=== PATIENT | female | born 2005 | race Caucasian/White ===

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

== ENCOUNTER 2023-01-13 17:50 | Emergency (ER) | payer OTHER, SELFPAY ==
--- NOTE | ~2023-01-13 | XR_ITS ---
EXAMINATION: XR chest 2V Exam Date/Time: 01/13/2023 18:55 CDT HISTORY: chest pain MID STERNAL CHEST PAIN X 1 DAY Comparison: None. RESULT: Lines, tubes, and devices: None. Lungs and pleura: Clear. Cardiomediastinal silhouette: Stable. Other: No acute osseous or upper abdominal finding. IMPRESSION: No acute cardiopulmonary process. Reviewed, dictated and finalized at location K.
--- NOTE | 2023-01-13 17:51 | ECG_ITS ---
Measurements Intervals [place] Rate: 101 P: 52 CT: 128 QRS: 64 QRSD: 85 T: 35 QT: 323 QTc: 419 Interpretive Statements SINUS TACHYCARDIA INCOMPLETE RIGHT BUNDLE BRANCH BLOCK NONSPECIFIC STTW ABNORMALITY NO PREVIOUS ECG AVAILABLE FOR COMPARISON Electronically Signed On 01-14-2023 14:49:26 CDT by Vishal Gamez M.D.
[2023-01-13 17:57] VITALS: BP 144/89; PULSE 84; RESP 16; TEMP 36.6; O2SAT 100
[2023-01-13 18:30] LABS: Basophils Percent Auto 0.4 % (0.2-1.2); Eosinophils Absolute Auto 0.2 K/mm3 (0-0.3); Eosinophils Percent Auto 1.9 % (0-4.4); Hematocrit 42.5 % (37.0-47.0); Hemoglobin 14.6 g/dL (12.0-15.0); Immature Granulocyte Absolute 0.02 K/mm3 (0.00-0.031); Immature Granulocyte Percent A 0.2 % (0-0.5); Lymphocytes Absolute Auto 3.24 K/mm3 (0.9-3.2); Lymphocytes Percent Auto 38.8 % (18.3-44.2); Mean Corpuscular HGB Conc 34.4 g/dl (32-36); Mean Corpuscular Hemoglobin 30.5 pg (26-34); Mean Corpuscular Volume 88.9 fl (80-100); Mean Platelet Volume 9.5 fl (7.4-10.4); Monocytes Absolute Auto 0.7 K/mm3 (0.1-0.6); Monocytes Percent Auto 7.8 % (2.6-8.5); Neutrophils Absolute Auto 4.2 K/mm3 (1.3-6.7); Neutrophils Percent Auto 50.9 % (45.5-73.1); Platelet Count Result 354 k/mm3 (150-375); Red Blood Count 4.78 M/mm3 (4.2-5.4); Red Cell Distribution Width 12.5 % (11.5-14.5); White Blood Count 8.3 K/mm3 (4.5-10.0)
[2023-01-13 18:41] LABS: Alanine Aminotransferase 34 U/L (6-35); Albumin Level 4.9 g/dL (3.7-5.6); Alkaline Phosphatase 90 U/L (45-116); Anion Gap 8 mmol/L (8-16); Aspartate Amino Transferase 36 U/L (14-36); Bilirubin,Total 0.3 mg/dL (0.2-1.3); Blood Urea Nitrogen 9 mg/dL (8-21); Calcium 9.3 mg/dL (8.9-10.7); Carbon Dioxide 29 mmol/L (22-30); Chloride 103 mmol/L (98-107); Estimated CRCL calculation 96 ml/min; Estimated Glomerular Filt Rate > 60; Glucose 93 mg/dL (65-110); Lipase 105 U/L (23-300); Potassium 3.8 mmol/L (3.4-5.0); Sodium 140 mmol/L (134-143)
[2023-01-13 18:43] LABS: Prothrombin Time 13.2 Seconds (11.1-14.7)
[2023-01-13 18:44] LABS: Partial Thromboplastin Time 28.6 SECONDS (22.3-36.8)
[2023-01-13 18:52] LABS: Troponin I < 0.012 ng/mL (0.000-0.034)
--- NOTE | 2023-01-13 20:24 | ED.CHESTPAIN ---
HPI - Chest Pain General Chief Complaint: Chest Pain Stated Complaint: chest pain Time Seen by Provider: 01/13/23 19:56 History of Present Illness HPI narrative: 17-year-old female reports for evaluation of right anterior chest pain that started approximately 2 and half hours prior to arrival. Patient states she was laying in her bed when she experienced a sharp pain to her right anterior chest that is worse with inspiration, leaning forward and movement. She denies alleviating factors. Patient does note that she had port steak for dinner, however the pain started before the onset of eating pork steak. She denies history of VTE, is not on control, no recent surgeries or hospitalizations. Denies injury or trauma, rash or overlying skin changes, nausea, vomiting, abdominal pain, indigestion, dysphagia or odynophagia, cough or congestion. She has not taken anything for pain. The pain does not radiate anywhere. She does endorse feeling anxious about the chest pain, however the anxiety did not start till after the chest pain started and she does not feel the chest pain is due to anxiety. Related Data Allergies Allergy/AdvReac Type Severity Reaction Status Date / Time No Known Allergies Allergy Unverified 06/12/21 23:52 Review of Systems Review of Systems: CONSTITUTIONAL: Denies fever, chills EYES: Denies visual changes, redness, or discharge. ENT: Denies rhinorrhea, congestion, sore throat, or otalgia. CARDIOVASCULAR: See HPI RESPIRATORY: Denies cough or dyspnea. GASTROINTESTINAL: Denies abdominal pain, nausea, vomiting, or diarrhea. GENITOURINARY: Denies dysuria or hematuria. SKIN: Denies rash or itching. MUSCULOSKELETAL: Denies back pain, joint pain, or myalgia. NEUROLOGIC: Denies headache, numbness, dizziness, or weakness. PSYCHIATRIC: Denies anxiety or depression. Exam Narrative: GENERAL: Well-appearing, in no acute distress. HEAD: Normocephalic EYES: PERRLA ENT: Nares clear. Mucous membranes moist. Oropharynx without tonsillar hypertrophy exudate or other lesions. NECK: Supple. CHEST: No respiratory distress. Clear to auscultation, no adventitious breath sounds. HEART: Regular rate and rhythm. No murmur heard. Normal peripheral pulses. No tenderness to chest wall. No overlying skin changes. ABDOMEN: Soft, nontender, normal active bowel sounds. EXTREMITIES: Normal range of motion. No edema. Negative Homans. SKIN: Warm, dry, no rash. NEURO: No focal deficits. Alert and oriented x3. PSYCH: Normal mood and affect. Course Vital Signs Vital signs: Vital Signs Temperature 97.9 F 01/13/23 17:57 Pulse Rate 84 01/13/23 17:57 Respiratory Rate 16 01/13/23 17:57 Blood Pressure 144/89 H 01/13/23 17:57 Pulse Oximetry 100 01/13/23 17:57 Oxygen Delivery Room Air 01/13/23 17:57 Temperature 97.6 F 01/13/23 22:21 Pulse Rate 84 01/13/23 22:21 Respiratory Rate 15 01/13/23 22:21 Blood Pressure 114/75 01/13/23 22:21 Pulse Oximetry 100 01/13/23 22:21 Oxygen Delivery Room Air 01/13/23 17:57 MDM - Chest Pain MDM Narrative Medical decision making narrative: 17-year-old female reports for evaluation of right anterior pleuritic chest pain that started approximately 2 and half hours prior to arrival while laying in bed. Vital stable, she is afebrile. Exam unremarkable. EKG reveals sinus tachycardia with a rate of 101, no ST elevations or depressions. CBC and chemistries are unremarkable. D-dimer negative. Troponin 1 and 2 negative. Chest x-ray without acute cardiopulmonary process. test negative. Lipase normal. She received Toradol with improvement in pain. Labs and imaging discussed with the patient. Heart score is 2. It is likely her pain is secondary to pleurisy. Encouraged her to take Tylenol and ibuprofen as needed for pain and to follow-up with her PCP within the following week for reevaluation. Strict ED return precautions discussed. Patient agrees wi
[2023-01-13] MEDS: KETOROLAC 30 MG/ML VIAL (*BKC) IV PUSH (20:47)
[2023-01-13 21:01] LABS: NT Pro B Type Natriuretic Pept < 20 pg/mL (19.9-100)
[2023-01-13 21:20] LABS: Troponin I < 0.012 ng/mL (0.000-0.034)
[2023-01-13 21:52] LABS: D Dimer < 0.27 ug/mL (<0.48)
[2023-01-13 22:21] VITALS: BP 114/75; PULSE 84; RESP 15; TEMP 36.4; O2SAT 100
== END 2023-01-13 22:22 | disposition home or self-care (01) ==
PROVIDERS: Emergency Medicine; Emergency Provider Physician Assistant; PCP Pediatrics Adolescent Medicine
DX: R07.89 Other chest pain (principal); R00.0 Tachycardia, unspecified; I45.10 Unspecified right bundle-branch block; R94.31 Abnormal electrocardiogram [ECG] [EKG]
CPT/HCPCS: 36415; 71046; 80053; 81025; 83690; 83880; 84484; 85025; 85380; 85610; 85730; 93005; 96374; 99284; J1885

== ENCOUNTER 2024-05-08 10:40 | Emergency (ER) | payer OTHER, SELFPAY ==
--- NOTE | ~2024-05-08 | XR_ITS ---
EXAMINATION: XR chest 2V DATE: 05/08/2024 12:22 INDICATION: Productive cough TECHNIQUE: PA and lateral views of the chest were obtained. COMPARISON: Chest radiograph dated 01/13/2023 FINDINGS: The lungs remain clear with no focal airspace opacities, pulmonary edema, pleural effusion or pneumot horax. The cardiomediastinal silhouette is normal. Visualized bones and soft tissues are unremarkable . IMPRESSION: 1. No acute cardiopulmonary disease. Reviewed, dictated and finalized at location A.
[2024-05-08 10:43] VITALS: BP 148/90; PULSE 113; RESP 16; TEMP 36.6; O2SAT 99
[2024-05-08 11:54] LABS: Strep Group A RT-PCR NOT DETECTED (Negative)
[2024-05-08 12:06] LABS: Influenza A QL RT-PCR Negative (Negative); Influenza B QL RT-PCR Negative (Negative); RSV RNA, RT-PCR Negative (Negative); SARS-CoV-2 RNA PCR Negative (Negative)
--- NOTE | 2024-05-08 12:06 | ED.GENADULT ---
HPI - General Adult General Chief complaint: Unspecified Stated complaint: sore throat Time Seen by Provider: 05/08/24 11:29 History of Present Illness HPI narrative: 19-year-old female no past medical history presents to the emergency department for sore throat and left ear pressure for 4 days. She denies difficulty swallowing, pain with swallowing, fever, nausea or vomiting. She is also reporting intermittent productive cough. She has been taking [id number] Mucinex with improvement in symptoms. Related Data Allergies Allergy/AdvReac Type Severity Reaction Status Date / Time No Known Allergies Allergy Verified 05/08/24 10:45 Review of Systems Review of Systems: All systems reviewed & are unremarkable except as noted in HPI and below Exam Narrative: GENERAL: Well-appearing, well-nourished, and in no acute distress. HEAD: Normocephalic, atraumatic. EYES: PERRLA and EOMI. ENT: Nares clear, no rhinorrhea or epistaxis. Mucous membranes moist. Bilateral TMs are ndiaye nonbulging with normal canals. Posterior pharynx with mild erythema and exudates to bilateral tonsils. No unilateral tonsillar hypertrophy, uvula is midline. No trismus. Patient tolerates secretions and speaking in full sentences. NECK: Supple. CHEST: Clear to auscultation. No respiratory distress. HEART: Regular rate and rhythm. No murmur heard. Normal peripheral pulses. EXTREMITIES: Normal range of motion. No edema. SKIN: Warm, dry, no rash. NEURO: No focal deficits. Alert and oriented x3 Course Vital Signs Vital signs: Vital Signs Temperature 97.8 F 05/08/24 10:43 Pulse Rate 113 H 05/08/24 10:43 Respiratory Rate 16 05/08/24 10:43 Blood Pressure 148/90 H 05/08/24 10:43 Pulse Oximetry 99 05/08/24 10:43 Temperature 97.8 F 05/08/24 10:43 Pulse Rate 113 H 05/08/24 10:43 Respiratory Rate 16 05/08/24 10:43 Blood Pressure 148/90 H 05/08/24 10:43 Pulse Oximetry 99 05/08/24 10:43 Medical Decision Making [facility] Narrative Medical decision making narrative: 19-year-old female presents emergency department for sore throat, left ear pressure and productive cough for the past 4 days. Triage vitals with tachycardia 113. She is afebrile and nontoxic appearing. Exam is significant for the above. Notably bilateral TMs are ndiaye nonbulging normal canals. Posterior pharynx with erythema and bilateral tonsillar exudates. There is no tonsillar hypertrophy, uvular deviation, trismus. She is speaking full sentences tolerating secretions. COVID, flu, RSV, strep and mono are negative. Chest x-ray is unremarkable. Patient updated on workup. Will treat as viral pharyngitis with steroids. Discussed follow-up with PCP and strict ED return precautions. She is agreeable to plan verbalized understanding. Discharged in stable condition. Vital Signs Vital Signs: Vital Signs Temperature 97.8 F 05/08/24 10:43 Pulse Rate 113 H 05/08/24 10:43 Respiratory Rate 16 05/08/24 10:43 Blood Pressure 148/90 H 05/08/24 10:43 Pulse Oximetry 99 05/08/24 10:43 Temperature 97.8 F 05/08/24 10:43 Pulse Rate 113 H 05/08/24 10:43 Respiratory Rate 16 05/08/24 10:43 Blood Pressure 148/90 H 05/08/24 10:43 Pulse Oximetry 99 05/08/24 10:43 Lab Data Labs: Lab Results 05/08/24 05/08/24 Range/Units 11:26 12:05 Monoscreen Negative (Negative) Influenza A (RT-PCR) Negative (Negative) Influenza B (RT-PCR) Negative (Negative) RSV (RT-PCR) Negative (Negative) SARS-CoV-2 RNA (RT-PCR) Negative (Negative) Group A Strep (PCR) Not detected (Negative) Discharge Plan Discharge Clinical Impression: Acute viral pharyngitis Patient Disposition: Home, Self-Care Condition: Stable Instructions: Antibiotic Form, Pharyngitis (ED) Additional Instructions: you were evaluated in the emergency department for left ear pain, cough and sore throat. COVID, flu, RSV, mono an
[2024-05-08 13:08] LABS: Monoscreen Negative (Negative); Negative Monotest Control Negative (Negative); Positive Monotest Control Positive (Positive)
[2024-05-08 14:15] VITALS: BP 132/74; PULSE 90; RESP 19; O2SAT 99
== END 2024-05-08 14:15 | disposition home or self-care (01) ==
PROVIDERS: Preventive Medicine Aerospace Medicine; Emergency Provider Physician Assistant; PCP Family Medicine
DX: J02.8 Acute pharyngitis due to other specified organisms (principal); Z20.822 Contact with and (suspected) exposure to COVID-19
CPT/HCPCS: 36415; 71046; 86308; 87637; 87651; 99283

== ENCOUNTER 2024-05-17 21:39 | Emergency (ER) | payer OTHER, SELFPAY ==
--- NOTE | ~2024-05-17 | XR_ITS ---
EXAMINATION: XR chest 2V DATE: 05/17/2024 22:38 INDICATION: Chest tightness. Shortness of breath. TECHNIQUE: Frontal and lateral views of the chest were obtained. COMPARISON: Chest 2 views 05/08/2024 FINDINGS: There is no pneumonia, pleural effusion, or pneumothorax. The heart size is normal. IMPRESSION: 1. No acute cardiopulmonary disease. Reviewed, dictated and finalized at location A.
[2024-05-17 21:40] VITALS: BP 138/92; PULSE 149; RESP 18; TEMP 36.8; O2SAT 99
--- NOTE | 2024-05-17 21:50 | ECG_ITS ---
Test Date: 2024-05-17 21:48:53 Measurements Intervals [place] Rate: 143 P: 0 HI: 0 QRS: 64 QRSD: 93 T: 55 QT: 327 QTc: 506 Interpretive Statements SINUS TACHYCARDIA INCOMPLETE RIGHT BUNDLE BRANCH BLOCK NONSPECIFIC STTW ABNORMALITY No previous ECG available for comparison Electronically Signed On 05-18-2024 12:20:45 CDT by Vishal Gamez M.D.
[2024-05-17 21:51] VITALS: O2SAT 100
[2024-05-17] MEDS: SODIUM CHLORIDE 0.9% IV 1,000 ML 999 ML IV CONT ×2 (22:01→23:47)
[2024-05-17 22:53] VITALS: BP 146/91; PULSE 150; RESP 15; O2SAT 100
[2024-05-17] MEDS: LORazepam (*CRX) 0.5 MG TABLET PO (22:59)
[2024-05-17] MEDS: ACETAMINOPHEN 500 MG TABLET 1000 MG PO (22:59)
[2024-05-17 23:06] LABS: Alanine Aminotransferase 24 U/L (6-35); Albumin Level 4.7 g/dL (3.5-5.1); Alkaline Phosphatase 78 U/L (38-126); Anion Gap 12 mmol/L (4-12); Aspartate Amino Transferase 26 U/L (14-36); Bilirubin,Total 0.3 mg/dL (0.2-1.3); Blood Urea Nitrogen 12 mg/dL (7-17); Calcium 9.6 mg/dL (8.4-10.2); Carbon Dioxide 25 mmol/L (22-30); Chloride 100 mmol/L (98-107); Estimated CRCL calculation 104 ml/min; Estimated Glomerular Filt Rate > 60; Glucose 147 mg/dL (65-110); Potassium 3.1 mmol/L (3.4-5.0); Sodium 137 mmol/L (137-145)
[2024-05-17 23:07] LABS: Prothrombin Time 13.7 Seconds (11.1-14.7)
[2024-05-17 23:08] LABS: Partial Thromboplastin Time 26.2 Seconds (22.3-36.8)
[2024-05-17 23:10] LABS: Basophils Percent Auto 0.3 % (0.2-1.2); Eosinophils Absolute Auto 0.1 K/mm3 (0-0.3); Eosinophils Percent Auto 0.5 % (0-4.4); Hematocrit 40.2 % (37.0-47.0); Hemoglobin 13.8 g/dL (12.0-15.0); Immature Granulocyte Absolute 0.07 K/mm3 (0.00-0.031); Immature Granulocyte Percent A 0.5 % (0-0.5); Lymphocytes Absolute Auto 2.32 K/mm3 (0.9-3.2); Lymphocytes Percent Auto 15.5 % (18.3-44.2); Mean Corpuscular HGB Conc 34.3 g/dl (32-36); Mean Corpuscular Hemoglobin 30.8 pg (26-34); Mean Corpuscular Volume 89.7 fl (80-100); Mean Platelet Volume 9.8 fl (7.4-10.4); Monocytes Absolute Auto 0.9 K/mm3 (0.1-0.6); Neutrophils Absolute Auto 11.5 K/mm3 (1.3-6.7); Neutrophils Percent Auto 77.2 % (45.5-73.1); Platelet Count Result 325 k/mm3 (150-375); Red Blood Count 4.48 M/mm3 (4.2-5.4); Red Cell Distribution Width 11.8 % (11.5-14.5); White Blood Count 14.9 K/mm3 (4.5-10.0)
[2024-05-17 23:15] LABS: D Dimer < 0.27 ug/mL (<0.48)
[2024-05-17 23:18] LABS: Troponin I < 0.012 ng/mL (0.000-0.034)
[2024-05-17 23:25] VITALS: BP 146/92; PULSE 141; RESP 16; O2SAT 98
--- NOTE | 2024-05-17 23:42 | ED.GENADULT ---
HPI - General Adult General Chief complaint: Allergic Reaction <MADYSON Simpson Last Filed: 05/18/24 03:48> Stated complaint: CHEST TIGHTNESS S/P RECEIVING COVID VAX TODAY <MADYSON Simpson Last Filed: 05/18/24 03:48> Time Seen by Provider: 05/17/24 21:50 <MADYSON Simpson Last Filed: 05/18/24 03:48> Source: patient <MADYSON Simpson Last Filed: 05/18/24 03:48> Mode of arrival: EMS <MADYSON Simpson Last Filed: 05/18/24 03:48> Limitations: no limitations <MADYSON Simpson Last Filed: 05/18/24 03:48> History of Present Illness HPI narrative: Patient is a 19-year-old female who presents the ED via EMS with report of chest tightness. Patient reports she received a Pfizer COVID-19 booster vaccine as well as her flu vaccine today. She then began having chest tightness and feeling mildly short of breath around 8:00 p.m. EMS was notified. Patient also reports having body aches, fatigue, palpitations. She was noted to be tachycardic per EMS in the 150s. Denies recent cough or cold symptoms, fevers. <MADYSON Simpson Last Filed: 05/18/24 03:48> Related Data Allergies/adverse reactions: Allergies Allergy/AdvReac Type Severity Reaction Status Date / Time No Known Allergies Allergy Verified 05/08/24 10:45 <MADYSON Simpson Last Filed: 05/18/24 03:48> Review of Systems Review of Systems: All systems reviewed & are unremarkable except as noted in HPI. <MADYSON Simpson Last Filed: 05/18/24 03:48> All systems reviewed & are unremarkable except as noted in HPI and below <MADYSON Simpson Last Filed: 05/18/24 03:48> Exam Narrative: GENERAL: Mildly anxious appearing, well-nourished, non-toxic, in no acute distress. HEAD: Normocephalic, atraumatic. RESPIRATORY: Airway patent, respirations nonlabored. Clear to auscultation bilaterally, no rales, rhonchi, wheezing. No focal lung sounds. CARDIOVASCULAR: Tachycardic with regular rhythm without murmurs, rubs, or gallops. MUSCULOSKELETAL: Moves all extremities. No gross deformities. Tenderness to palpation throughout midsternal chest wall, reproducing pain. No peripheral edema or calf tenderness. SKIN: Warm, dry, normal color. NEURO: A&O X3. Speech clear. Cranial nerves II-XII grossly intact. Steady gait. No ataxic movements. PSYCHIATRIC: Appropriate mood and affect. Normal interaction. <Candi Yang PA-C - Last Filed: 05/18/24 03:48> Course PRODUCT SPECIALIST/PA Physician Supervision Patient's HPI, Exam, and MDM were reviewed and I agreed with the workup and disposition done in the emergency department by the MLP. I was available for consultation, but was not directly involved with patient's care nor did I evaluate the patient. <Humberto Duncan MD - Last Filed: 05/18/24 07:19> Vital Signs Vital signs: Vital Signs Temperature 36.8 C 05/17/24 21:40 Pulse Rate 149 H 05/17/24 21:40 Respiratory Rate 18 05/17/24 21:40 Blood Pressure 138/92 H 05/17/24 21:40 Pulse Oximetry 99 05/17/24 21:40 Oxygen Delivery Room Air 05/17/24 21:40 Temperature 36.8 C 05/17/24 21:40 Pulse Rate 126 H 05/18/24 02:34 Respiratory Rate 16 05/18/24 02:34 Blood Pressure 124/84 05/18/24 02:34 Pulse Oximetry 100 05/18/24 02:34 Oxygen Delivery Room Air 05/17/24 21:51 <Candi Yang PA-C - Last Filed: 05/18/24 03:48> Vital Signs Temperature 36.8 C 05/17/24 21:40 Pulse Rate 149 H 05/17/24 21:40 Respiratory Rate 18 05/17/24 21:40 Blood Pressure 138/92 H 05/17/24 21:40 Pulse Oximetry 99 05/17/24 21:40 Oxygen Delivery Room Air 05/17/24 21:40 Temperature 36.8 C 05/17/24 21:40 Pulse Rate 126 H 05/18/24 02:34 Respiratory Rate 16 05/18/24 02:34 Blood Pressure 124/84 05/18/24 02:34 Pulse Oximetry 100 05/18/24 02:34 Oxygen Delivery Room A
[2024-05-17] MEDS: POTASSIUM CHLORIDE 20 MEQ ER TABLET 40 MEQ PO (23:47)
[2024-05-17 23:58] LABS: Add Urine Microscopic? NO; Appearance Urine Clear (Clear); Bilirubin Urine Negative (Negative); Blood Urine Negative (Negative); Color Urine Yellow (Yellow); Glucose Urine UA Negative (Negative); Ketones Urine Negative (Negative); Leukocyte Esterase Ur Negative LEU/UL (Negative); Nitrate Urine Negative (Negative); Protein Urine Negative (Negative); Specific Grav Ur 1.009 (1.001-1.035); Urobilinogen Urine 0.2 mg/dL (<2.0); pH Urine 6.5 (5.0-9.0)
[2024-05-18 00:19] LABS: Amphetamine Screen Urine Negative (Negative); Barbiturate Screen Urine Negative (Negative); Benzodiazepines Screen Urine Negative (Negative); Cannabinoid Screen Urine Negative (Negative); Cocaine Screen Urine Negative (Negative); Methadone Screen Urine Negative (Negative); Opiate Screen Urine Negative (Negative); Phencyclidine Screen Urine Negative (Negative)
[2024-05-18 00:25] VITALS: BP 120/75; PULSE 123; O2SAT 99
[2024-05-18 01:30] VITALS: BP 126/82; PULSE 126; RESP 18; O2SAT 100
--- NOTE | 2024-05-18 01:51 | ECG_ITS ---
Test Date: 2024-05-18 01:51:24 Measurements Intervals [place] Rate: 136 P: 60 VA: 104 QRS: 57 QRSD: 89 T: 28 QT: 330 QTc: 498 Interpretive Statements SINUS TACHYCARDIA INOCMPLETE RIGHT BUNDLE BRANCH BLOCK NONSPECIFIC STTW ABNORMALITY Compared to ECG 05/17/2024 21:48:53 NO SIGNIFICANT CHANGES Electronically Signed On 05-18-2024 12:23:32 CDT by Vishal Gamez M.D.
[2024-05-18 02:19] LABS: Troponin I < 0.012 ng/mL (0.000-0.034)
[2024-05-18 02:20] VITALS: BP 117/68; PULSE 108; RESP 17; O2SAT 100
[2024-05-18 02:34] VITALS: BP 124/84; PULSE 126; RESP 16; O2SAT 100
== END 2024-05-18 02:35 | disposition home or self-care (01) ==
PROVIDERS: Emergency Provider Physician Assistant; PCP Family Medicine
DX: R00.0 Tachycardia, unspecified (principal); T50.Z95A Adverse effect of other vaccines and biological substances, initial encounter
CPT/HCPCS: 36415; 71046; 80053; 80307; 81003; 83735; 84484; 85025; 85380; 85610; 85730; 93005; 96360; 96361; 99284; A9270; J7030